=== PATIENT | female | born 1980 | race Two or more races ===

== ENCOUNTER 2022-07-18 21:19 | Inpatient (IN) | payer MEDICAID ==
[~2022-07-18] VITALS: Ht 157.5 cm; Wt 50.4 kg
[2022-07-18 22:03] LABS: Urine Bacteria FEW /hpf (None Seen); Urine Blood Negative /uL (Negative); Urine Specific Gravity 1.013 (1.001-1.035); Urine WBC <1 /hpf (0 - 5)
[2022-07-18 23:07] LABS: Mean Corpuscular Volume 55.2 fL (80.0-100.0)
[2022-07-18 23:13] LABS: Hematocrit 13.2 % (36.0-46.0); Mean Corpuscular Hemoglobin 14.8 pg (28.0-32.0); Mean Corpuscular Hgb Conc. 26.8 g/dL (32.0-36.0); Red Blood Cells 2.39 10^6/uL (4.0-5.20); White Blood Cell 4.7 10^3/uL (4.4-10.8)
[2022-07-18 23:17] LABS: Hemoglobin 3.5 g/dL (12.2-16.2)
[2022-07-18 23:18] LABS: Red Cell Distribution Width 21.8 % (11.8-14.3)
[2022-07-18 23:19] LABS: Band Neutrophils % (manual) 0; Basophils % (manual) 0 (0.0-2.0); Blast Cells 0; Metamyelocytes % 0; Myelocytes % 0; Promyelocytes % 0; Reactive Lymphocytes 0
[2022-07-18 23:27] LABS: Potassium 3.5 mmol/L (3.5-5.1)
[2022-07-18 23:31] LABS: Albumin 3.7 g/dL (3.4-5.0); BUN/Creatinine Ratio 12.5; Calcium 8.3 mg/dL (8.5-10.1)
[2022-07-18 23:33] LABS: Bilirubin, Total 0.3 mg/dL (0.2-1.0)
[2022-07-19] VITALS (12 sets, daily range): BP systolic 114–128; BP diastolic 54–69
[2022-07-19 00:10] LABS: Eosinophils % (manual) 1 (0-7); Lymphocytes % (manual) 44 (10.0-50.0); Monocytes % (manual) 7 (0-12)
[2022-07-19] MEDS ORDERED: ONDANSETRON HCL 4 MG/2 ML VIAL IV PRN (02:30)
[2022-07-19] MEDS ORDERED: DOCUSATE SOD 100 MG CAP PO PRN (02:30)
[2022-07-19] MEDS ORDERED: HYDROcodone-ACET 5/325MG TAB PO PRN (02:30)
[2022-07-19] MEDS ORDERED: ACETAMINOPHEN 325 MG TAB PO PRN (02:30)
[2022-07-19] MEDS ORDERED: MORPHINE SULFATE INJ 2 MG/ml SYRG IV PRN (02:30)
[2022-07-19] MEDS ORDERED: NITROGLYCERIN 0.4 MG SL TAB SL PRN (02:30)
[2022-07-19] MEDS: SODIUM CHLORIDE 0.9% 1,000 ML IV SCH ×2 (03:05→19:15)
[2022-07-19] MEDS: FAMOTIDINE (10MG/ML) 2ML VL IV SCH (10:05)
[2022-07-19] MEDS: ASPirin 81 mg TAB PO SCH (10:05)
[2022-07-19 16:45] LABS: Mean Corpuscular Hgb Conc. 31.2 g/dL (32.0-36.0)
[2022-07-19 16:47] LABS: Hematocrit 28.1 % (36.0-46.0); Hemoglobin 8.8 g/dL (12.2-16.2); Mean Corpuscular Hemoglobin 21.5 pg (28.0-32.0); Mean Corpuscular Volume 68.9 fL (80.0-100.0); Red Blood Cells 4.08 10^6/uL (4.0-5.20); White Blood Cell 5.3 10^3/uL (4.4-10.8)
[2022-07-19 16:57] LABS: Albumin 3.6 g/dL (3.4-5.0); Calcium 8.4 mg/dL (8.5-10.1); Potassium 3.7 mmol/L (3.5-5.1)
[2022-07-19 17:00] LABS: BUN/Creatinine Ratio 10.9; Bilirubin, Total 2.1 mg/dL (0.2-1.0); Total Protein 6.9 g/dL (6.4-8.2)
[2022-07-19 17:17] LABS: Basophils % (manual) 0 (0.0-2.0); Blast Cells 0; Eosinophils % (manual) 0 (0-7); Metamyelocytes % 0; Myelocytes % 0; Promyelocytes % 0; Reactive Lymphocytes 0
[2022-07-19 18:20] LABS: Band Neutrophils % (manual) 3; Lymphocytes % (manual) 18 (10.0-50.0); Monocytes % (manual) 5 (0-12)
[2022-07-19 19:22] LABS: Folate (Folic Acid) 9.19 ng/mL (5.38-24)
[2022-07-20 05:00] VITALS: BP 116/66
[2022-07-20 06:28] LABS: Hemoglobin 7.9 g/dL (12.2-16.2)
[2022-07-20 06:31] LABS: Hematocrit 24.5 % (36.0-46.0); Mean Corpuscular Hemoglobin 21.8 pg (28.0-32.0); Mean Corpuscular Hgb Conc. 32.3 g/dL (32.0-36.0); Mean Corpuscular Volume 67.7 fL (80.0-100.0); Red Blood Cells 3.62 10^6/uL (4.0-5.20); White Blood Cell 4.1 10^3/uL (4.4-10.8)
[2022-07-20 06:38] LABS: Red Cell Distribution Width 33.3 % (11.8-14.3)
[2022-07-20 06:39] LABS: Band Neutrophils % (manual) 0; Basophils % (manual) 0 (0.0-2.0); Blast Cells 0; Eosinophils % (manual) 0 (0-7); Promyelocytes % 0; Reactive Lymphocytes 0
[2022-07-20 06:48] LABS: Potassium 3.3 mmol/L (3.5-5.1)
[2022-07-20 07:03] LABS: Albumin 3.2 g/dL (3.4-5.0); Bilirubin, Total 1.2 mg/dL (0.2-1.0); Calcium 8.2 mg/dL (8.5-10.1); Total Protein 5.8 g/dL (6.4-8.2)
[2022-07-20] MEDS: ASPirin 81 mg TAB PO SCH (08:59)
[2022-07-20] MEDS: FAMOTIDINE (10MG/ML) 2ML VL IV SCH (08:59)
[2022-07-20 09:00] VITALS: BP 111/56
[2022-07-20] MEDS ORDERED: POTASSIUM EFFERVESENT TAB 25 MEQ PO ONE (09:15)
[2022-07-20] MEDS ORDERED: FERR-7 PO (09:20)
[2022-07-20 15:05] LABS: Lymphocytes % (manual) 23 (10.0-50.0); Metamyelocytes % 2; Monocytes % (manual) 8 (0-12); Myelocytes % 1
== END 2022-07-20 11:55 | disposition home or self-care (01) | DRG 663 ==
LOC: ER 21:19 → TELE 07-19 02:24 → WEST WING 07-19 21:38 → TELE-WESTW 07-19 21:43 → WEST WING 07-19 23:00
PROVIDERS: ADMIT Nurse Practitioner Family; ATTEND Nurse Practitioner Acute Care
PROC: 30233N1 Transfusion of Nonautologous Red Blood Cells into Peripheral Vein, Percutaneous Approach (ICD-10-PCS; principal; 2022-07-19)
DX: D50.9 Iron deficiency anemia, unspecified (principal); R94.31 Abnormal electrocardiogram [ECG] [EKG]; Z20.822 Contact with and (suspected) exposure to COVID-19
CPT/HCPCS: 36415; 71045; 80053; 81001; 82607; 82746; 83010; 83880; 84484; 84702; 85007; 85027; 85045; 86850; 86880; 86885; 86900; 86901; 86922; 96361; 96374; G0378; J3490